=== PATIENT | male | born 1970 | race American Indian/Alaskan Native ===

== ENCOUNTER 2018-08-25 13:54 | Emergency (ER) | payer OTHER ==
[2018-08-25] MEDS ORDERED: ZOFRAN IV ONE (15:00)
[2018-08-25] MEDS ORDERED: SUBLIMAZE IV ONE (15:00)
[2018-08-25] MEDS ORDERED: ZOFRAN ONE (15:04)
[2018-08-25] MEDS ORDERED: SUBLIMAZE ONE (15:04)
--- NOTE | 2018-08-25 15:09 | Emergency Department Report ---
HPI - General Chief Complaint: Back Pain/Injury Time Seen by Provider: 08/25/18 14:54 - HPI HPI: Room 18 The patient is a 47-year-old male presenting with chief complaint of pain after fall. Patient states prior to arrival he was pressure washing a house when he lost his balance and fell backwards off of the ladder 10 feet down to a wooden deck. There was reported loss of consciousness. Patient complains of a headache and low back pain and neck pain. Patient gives his pain is score of 8/10 Location: [See above] Duration: [See above] Quality: Pain Severity:8/10 Modifying factors: [see above] Context: [see above] Mode of transportation: [not driving] ED Past Medical Hx - Past Medical History Previous Medical History?: No - Surgical History Past Surgical History?: No - Family History Family history: no significant - Social History Smoking Status: Never Smoker Substance Use Type: None (denies illicit drug use) - Medications Home Medications: Home Medications Medication Instructions Recorded Confirmed Last Taken Type Cyclobenzaprine [Flexeril] 10 mg PO TID PRN #14 tablet 08/25/18 Unknown Rx HYDROcodone/APAP 5-325 [[place] 1 - 2 each PO Q6HR PRN #14 tablet 08/25/18 Unknown Rx 5/325] Ibuprofen [Motrin 800 MG tab] 800 mg PO Q8HR PRN #20 tablet 08/25/18 Unknown Rx ED Review of Systems ROS: Stated complaint: HEAD PAIN/LOWER BACK PAIN Other details as noted in HPI Constitutional: no symptoms reported Eyes: denies: eye pain ENT: denies: throat pain Respiratory: no symptoms reported Cardiovascular: denies: chest pain Endocrine: no symptoms reported Gastrointestinal: denies: abdominal pain Genitourinary: denies: dysuria Musculoskeletal: back pain, arthralgia Neurological: headache Physical Exam - Physical Exam Vital Signs: Vital Signs 08/25/18 14:38 Temperature 97.6 F Pulse Rate 68 Respiratory 20 Rate Blood Pressure 141/90 Physical Exam: GENERAL: The patient is well-developed well-nourished male lying on stretcher not appearing to be in acute distress. [] HEENT: Normocephalic. Atraumatic. Extraocular motions are intact. Patient has moist mucous membranes. NECK: Supple. Mild lower cervical tenderness to palpation. No axial step-offs CHEST/LUNGS: Clear to auscultation. There is no respiratory distress noted. HEART/CARDIOVASCULAR: Regular. There is no tachycardia. There is no gallop rub or murmur. ABDOMEN: Abdomen is soft, nontender. Patient has normal bowel sounds. There is no abdominal distention. SKIN: There is no rash. There is no edema. There is no diaphoresis. NEURO: The patient is awake, alert, and oriented. The patient is cooperative. The patient has no focal neurologic deficits. The patient has normal speech MUSCULOSKELETAL: There is tenderness to palpation of the cervical and lumbar axial spine. No step-offs. There is no tenderness to palpation of either upper extremity. There is no tenderness to palpation of the left lower extremity. Tenderness to palpation of the right hip but the remainder of the right lower extremity is nontender. There is no tenderness to palpation of bilateral clavicles. There is no tenderness to palpation of the thoracic spine ED Course Vital Signs 08/25/18 14:38 Temperature 97.6 F Pulse Rate 68 Respiratory 20 Rate Blood Pressure 141/90 ED Medical Decision Making - Radiology Data Radiology results: report reviewed (CT head, CT cervical spine, CT lumbar spine, right hip x-ray), image reviewed (CT head, CT cervical spine, CT lumbar spine, right hip x-ray) interpreted by me: Right hip x-ray-[place] [address] Cat Scan Report Signed Patient: NABOR PARKER JR MR#: [id number] : 1970 Acct:[id number] Age/Sex: 47 / M ADM Date: 08/25/18 Loc: ED Attending Dr: Ordering Physician: GRACE ABBASI MD Date of Service: 08/25/18 Procedure(s): CT cervical spine wo con Accession Number(s): [id number] cc: GRACE ABBASI MD PROCEDURE: CT CERVICAL SPINE WO CON HISTORY: pain after fall from 10 feet FINDINGS: Unenhanced CT of the cervical spine was performed and data was reformatted in the sagittal and coronal planes. These images demonstrate no fracture or malalignment of the cervical spine. The prevertebral soft tissues are within normal limits. There is no evidence of central canal stenosis, significant neural foraminal narrowing or nerve root impingement. The pulmonary apices appear clear. IMPRESSION: No fracture or malalignment of the cervical spine This document is electronically signed by Arturo Lagunas MD., August 25 2018 04:15:29 PM ET Transcribed By: JOHN Dictated By: ARTURO LAGUNAS MD Electronically Authenticated By: ARTURO LAGUNAS MD Signed Date/Time: 08/25/187 DD/ 0000 TD/TT: 08/25/[address] [address] Cat Scan Report Signed Patient: NABOR PARKER JR MR#: [id number] : 1970 Acct:[id number] Age/Sex: 47 / M ADM Date: 08/25/18 Loc: ED Attending Dr: Ordering Physician: GRACE ABBASI MD Date of Service: 08/25/18 Procedure(s): CT head/brain wo con Accession Number(s): [id number] cc: GRACE ABBASI MD PROCEDURE: CT HEAD/BRAIN WO CON HISTORY: LOC after fall from 10 feet FINDINGS: Unenhanced CT of the brain was performed and demonstrates no acute intracranial hemorrhage, extra-axial fluid collection, midline shift or mass effect. The ventricles and basal cisterns are not effaced. The mastoid air cells and middle ears appear clear. There is no evidence of acute sinusitis. The bony calvarium appears intact. IMPRESSION: No acute intracranial hemorrhage This document is electronically signed by Arturo Lagunas MD., August 25 2018 04:12:22 PM ET Transcribed By: JOHN Dictated By: ARTURO LAGUNAS MD Electronically Authenticated By: ARTURO LAGUNAS MD Signed Date/Time: 08/25/184 DD/ 1551 TD/TT: 08/25/[address] [address] Cat Scan Report Signed Patient: NABOR PARKER JR MR#: [id number] : 1970 Acct:[id number] Age/Sex: 47 / M ADM Date: 08/25/18 Loc: ED Attending Dr: Ordering Physician: GRACE ABBASI MD Date of Service: 08/25/18 Procedure(s): CT lumbar spine wo con Accession Number(s): [id number] cc: GRACE ABBASI MD PROCEDURE: CT LUMBAR SPINE WO CON HISTORY: pain after fall from 10 feet FINDINGS: Unenhanced CT of the lumbar spine was performed and data was reformatted into sagittal and coronal planes. These images demonstrate no fracture or malalignment of the lumbar spine. At L1-L2, L2-L3, L3-4 and L4-5 there are no posterior disc abnormalities. There is moderate facet hypertrophy at L4-L5. At L5-S1 there is a small posterior disc bulge mildly effaces the anterior margin of the thecal sac but does not result in canal stenosis. There is mild bilateral neural foraminal narrowing without nerve root impingement. There are degenerative changes in both sacroiliac joints. IMPRESSION: No fracture is seen in the lumbar spine This document is electronically signed by Arturo Lagunas MD., August 25 2018 04:17:39 PM ET Transcribed By: JOHN Dictated By: ARTURO LAGUNAS MD Electronically Authenticated By: ARTURO LAGUNAS MD Signed Date/Time: 08/25/181618 DD/ 57 TD/TT: 08/25/18 1558 [facility] [address] [place] [address] XRay Report Signed Patient: NABOR PARKER JR MR#: [id number] : 1970 Acct:[id number] Age/Sex: 47 / M ADM Date: 08/25/18 Loc: ED Attending Dr: Ordering Physician: GRACE ABBASI MD Date of Service: 08/25/18 Procedure(s): XR hip 2-3V RT Accession Number(s): [id number] cc: GRACE ABBASI MD Fluoro Time In Minutes: PROCEDURE: XR HIP 2-3V RT TECHNIQUE: Single view pelvis and 1 view(s) right hip radiographs. HISTORY: pain after fall from 10 feet COMPARISONS: None currently available. FINDINGS: PELVIS: Sacroiliac joints are unremarkable. There is no acute pelvic fracture. There is no evidence for healing fracture. There is no cortical destruction to suggest osteomyelitis. There are no suspicious osseous lesions. There are no radiopaque foreign objects. RIGHT HIP: Joints in anatomical alignment. No significant arthrosis. There is no acute dislocation. There is no acute fracture. There is no evidence for healing fracture. There is no cortical destruction to suggest osteomyelitis. There are no suspicious osseous lesions. There are no radiopaque foreign objects. IMPRESSION: * No acute osseous findings. This document is electronically signed by Cristian Le MD., August 25 2018 04:41:03 PM ET Transcribed By: TYM Dictated By: CRISTIAN LE MD Electronically Authenticated By: CRISTIAN LE MD Signed Date/Time: 08/25/181642 DD/ 26 TD/TT: 08/25/181626 - Differential Diagnosis closed head injury, cervical strain, cervical fracture, right hip contusion Critical care attestation.: If time is entered above; I have spent that time in minutes in the direct care of this critically ill patient, excluding procedure time. ED Disposition Clinical Impression: Closed head injury, Cervical strain, acute, Acute lumbar myofascial strain, Contusion of right hip Disposition: -01 TO HOME OR SELFCARE Is pt being admited?: No Does the pt Need Aspirin: No Condition: Stable Instructions: Muscle Strain (ED) Additional Instructions: Return to the emergency department immediately should you develop worsening symptoms, fever, inability to tolerate food or liquid or any other concerns. Prescriptions: Cyclobenzaprine [Flexeril] 10 mg PO TID PRN #14 tablet PRN Reason: Muscle Spasm Ibuprofen [Motrin 800 MG tab] 800 mg PO Q8HR PRN #20 tablet PRN Reason: Pain, Moderate (4-6) HYDROcodone/APAP 5-325 [[place] 5/325] 1 - 2 each PO Q6HR PRN #14 tablet PRN Reason: Pain Referrals: JACOB VIERA MD [Primary Care Provider] - 3-5 Days LILLIANA HI MD [Staff Physician] - 3-5 Days (Dr. Hi is an orthopedic surgeon. Please follow up with him for further evaluation should your pain persist) Time of Disposition: 17:00
--- NOTE | 2018-08-25 16:14 | Cat Scan Report ---
PROCEDURE: CT HEAD/BRAIN WO CON HISTORY: LOC after fall from 10 feet FINDINGS: Unenhanced CT of the brain was performed and demonstrates no acute intracranial hemorrhage, extra-axial fluid collection, midline shift or mass effect. The ventricles and basal cisterns are no t effaced. The mastoid air cells and middle ears appear clear. There is no evidence of acute sinusitis. The bony calvarium appears intact. IMPRESSION: No acute intracranial hemorrhage This document is electronically signed by Arturo Lagunas MD., August 25 2018 04:12:22 PM ET
--- NOTE | 2018-08-25 16:17 | Cat Scan Report ---
PROCEDURE: CT CERVICAL SPINE WO CON HISTORY: pain after fall from 10 feet FINDINGS: Unenhanced CT of the cervical spine was performed and data was reformatted in the sagittal and coronal planes. These images demonstrate no fracture or malalignment of the cervical spine. The prevertebral soft tis sues are within normal limits. There is no evidence of central canal stenosis, significant neural foraminal narrowing or nerve root impingement. The pulmonary apices appear clear. IMPRESSION: No fracture or malalignment of the cervical spine This document is electronically signed by Arturo Lagunas MD., August 25 2018 04:15:29 PM ET
--- NOTE | 2018-08-25 16:19 | Cat Scan Report ---
PROCEDURE: CT LUMBAR SPINE WO CON HISTORY: pain after fall from 10 feet FINDINGS: Unenhanced CT of the lumbar spine was performed and data was reformatted into sagittal and coronal planes. These images demonstrate no fracture or malalignment of the lumbar spine. At L1-L2, L2-L3, L3-4 and L 4-5 there are no posterior disc abnormalities. There is moderate facet hypertrophy at L4-L5. At L5-S1 there is a small posterior disc bulge mildly effaces the anterior margin of the thecal sac b ut does not result in canal stenosis. There is mild bilateral neural foraminal narrowing without nerv e root impingement. There are degenerative changes in both sacroiliac joints. IMPRESSION: No fracture is seen in the lumbar spine This document is electronically signed by Arturo Lagunas MD., August 25 2018 04:17:39 PM ET
--- NOTE | 2018-08-25 16:43 | XRay Report ---
PROCEDURE: XR HIP 2-3V RT TECHNIQUE: Single view pelvis and 1 view(s) right hip radiographs. HISTORY: pain after fall from 10 feet COMPARISONS: None currently available. FINDINGS: PELVIS: Sacroiliac joints are unremarkable. There is no acute pelvic fracture. There is no evidence for healing fracture. There is no cortical destruction to suggest osteomyelitis. There are no suspicious osseous lesions. There are no radiopaque foreign objects. RIGHT HIP: Joints in anatomical alignment. No significant arthrosis. There is no acute dislocation. There is no acute fracture. There is no evidence for healing fracture. There is no cortical destruction to suggest osteomyelitis. There are no suspicious osseous lesions. There are no radiopaque foreign objects. IMPRESSION: * No acute osseous findings. This document is electronically signed by Cristian Burt MD., August 25 2018 04:41:03 PM ET
[2018-08-25 17:59] VITALS: BP 144/86
== END 2018-08-25 17:05 | disposition home or self-care (01) ==
LOC: ED 13:54
DX: S09.90XA Unspecified injury of head, initial encounter (principal); S16.1XXA Strain of muscle, fascia and tendon at neck level, initial encounter; S39.012A Strain of muscle, fascia and tendon of lower back, initial encounter; S70.01XA Contusion of right hip, initial encounter; W11.XXXA Fall on and from ladder, initial encounter; Y93.H3 Activity, building and construction; Y92.89 Other specified places as the place of occurrence of the external cause; Y99.8 Other external cause status
CPT/HCPCS: 70450; 72125; 72131; 73502; 96374; 96375; 99284; J2405; J3010

== ENCOUNTER 2019-09-03 02:09 | Emergency (ER) | payer SELFPAY ==
[2019-09-03] MEDS ORDERED: BUTALB/ACETAMINOPHEN/CAFFEINE TAB PO ONE (02:28)
[2019-09-03] MEDS ORDERED: KETOROLAC 30 MG/1 ML INJ IM ONE (02:28)
[2019-09-03 02:54] VITALS: BP 139/100
--- NOTE | 2019-09-03 03:33 | Emergency Department Report ---
ED General Adult HPI - General Chief complaint: High BP Stated complaint: BLOOD PRESSURE Source: patient Mode of arrival: Ambulatory Limitations: No Limitations - History of Present Illness Initial comments: Patient is a 48-year-old -[place]yp[place] male with a history of hypertension who is noncompliant with his medications who presents to the ED with acute onset persistent severe right temporal headache for the last 1 week, worse in the last 2 days. Patient states that he has not been taking his blood pressure medications after being out of the medicine over 2 months ago. Patient states that in the past he noticed that the blood pressure has been elevated and since he lost his job he has not been able to follow up with any provider to write him his blood pressure medication. Patient states that he has been taking Norvasc 10 mg daily in the past. Patient states that for his headache he has been taking Tylenol as needed for the pain but the pain has been persistent despite taking the medication. Patient denies chest pain, shortness of breath, nausea, vomiting, change in vision, syncope, dizziness, sore throat, fever or chills, nasal and sinus congestion, neck pain, numbness and tingling or weakness of upper and lower extremities bilaterally or seizures. MD Complaint: headache, medication refill -: Sudden, week(s) (1) Location: head Radiation: non-radiation Severity scale (0 -10): 8 Quality: aching, sharp Consistency: constant Improves with: none Worsens with: none Associated Symptoms: denies other symptoms, headaches. denies: confusion, chest pain, cough, diaphoresis, fever/chills, loss of appetite, malaise, nausea/vomiting, rash, seizure, shortness of breath, syncope Treatments Prior to Arrival: NSAID - Related Data Previous Rx's Medication Instructions Recorded Last Taken Type Cyclobenzaprine [Flexeril] 10 mg PO TID PRN #14 tablet 08/25/18 Unknown Rx HYDROcodone/APAP 5-325 [[place] 1 - 2 each PO Q6HR PRN #14 tablet 08/25/18 Unknown Rx 5/325] Butalb/Acetamin/Caff 50-325-40 2 tab PO Q6HR PRN #15 tab 09/03/19 Unknown Rx [Fioricet 50-325-40] Ibuprofen [Motrin 800 MG tab] 800 mg PO Q8HR PRN #20 tablet 09/03/19 Unknown Rx amLODIPine 10 mg PO DAILY #30 tab 09/03/19 Unknown Rx Allergies Allergy/AdvReac Type Severity Reaction Status Date / Time No Known Allergies Allergy Verified 08/25/18 14:38 ED Review of Systems ROS: Stated complaint: BLOOD PRESSURE Other details as noted in HPI Constitutional: denies: chills, fever Eyes: denies: eye pain, eye discharge, vision change ENT: denies: ear pain, throat pain Respiratory: denies: cough, shortness of breath, wheezing Cardiovascular: denies: chest pain, palpitations Endocrine: no symptoms reported Gastrointestinal: denies: abdominal pain, nausea, diarrhea Genitourinary: denies: urgency, dysuria Musculoskeletal: denies: back pain, joint swelling, arthralgia Skin: denies: rash, lesions Neurological: headache. denies: weakness, paresthesias Psychiatric: denies: anxiety, depression Hematological/Lymphatic: denies: easy bleeding, easy bruising ED Past Medical Hx - Past Medical History Previous Medical History?: Yes Hx Hypertension: Yes - Surgical History Past Surgical History?: No - Social History Smoking Status: Never Smoker Substance Use Type: Marijuana - Medications Home Medications: Home Medications Medication Instructions Recorded Confirmed Last Taken Type Cyclobenzaprine [Flexeril] 10 mg PO TID PRN #14 tablet 08/25/18 Unknown Rx HYDROcodone/APAP 5-325 [[place] 1 - 2 each PO Q6HR PRN #14 tablet 08/25/18 Unknown Rx 5/325] Butalb/Acetamin/Caff 50-325-40 2 tab PO Q6HR PRN #15 tab 09/03/19 Unknown Rx [Fioricet 50-325-40] Ibuprofen [Motrin 800 MG tab] 800 mg PO Q8HR PRN #20 tablet 09/03/19 Unknown Rx amLODIPine 10 mg PO DAILY #30 tab 09/03/19 Unknown Rx ED Physical Exam - General Limitations: No Limitations General appearance: alert, in no apparent distress, anxious - Head Head exam: Present: atraumatic, normocephalic, normal inspection - Eye Eye exam: Present: normal appearance, PERRL, EOMI Pupils: Present: normal accommodation - ENT ENT exam: Present: normal exam, normal orophraynx, mucous membranes moist, TM's normal bilaterally, normal external ear exam - Neck Neck exam: Present: normal inspection, full ROM - Respiratory Respiratory exam: Present: normal lung sounds bilaterally. Absent: respiratory distress, wheezes, rales, rhonchi, chest wall tenderness, decreased breath sounds, prolonged expiratory - Cardiovascular Cardiovascular Exam: Present: regular rate, normal rhythm, normal heart sounds. Absent: systolic murmur, diastolic murmur, rubs, gallop - GI/Abdominal GI/Abdominal exam: Present: soft, normal bowel sounds. Absent: tenderness, guarding, rigid, hyperactive bowel sounds, hypoactive bowel sounds - Extremities Exam Extremities exam: Present: normal inspection, full ROM, normal capillary refill - Back Exam Back exam: Present: normal inspection, full ROM. Absent: tenderness, CVA tenderness (R), CVA tenderness (L), muscle spasm, paraspinal tenderness, vertebral tenderness - Neurological Exam Neurological exam: Present: alert, oriented X3, CN II-XII intact, normal gait, reflexes normal - Psychiatric Psychiatric exam: Present: normal affect, normal mood - Skin Skin exam: Present: warm, dry, intact, normal color. Absent: rash ED Course Vital Signs 09/03/19 09/03/19 02:12 02:53 Temperature 98.0 F 98 F Pulse Rate 113 H 79 Respiratory 18 18 Rate Blood Pressure 147/99 Blood Pressure 139/100 [Left] O2 Sat by Pulse 100 100 Oximetry ED Medical Decision Making - Medical Decision Making This is a 48-year-old -[place] male with a history of hypertension who is noncompliant with his medications who presents to the ED with acute onset persistent severe right temporal headache for the last 1 week, worse in the last 2 days. Patient states that he has not been taking his blood pressure medications after being out of the medicine over 2 months ago. Patient states that in the past he noticed that the blood pressure has been elevated and since he lost his job he has not been able to follow up with any provider to write him his blood pressure medication. Patient states that he has been taking Norvasc 10 mg daily in the past. Patient states that for his headache he has been taking Tylenol as needed for the pain but the pain has been persistent despite taking the medication. In the ED, patient is alert and oriented x3 and is not in distress but anxious and tachycardic in triage. Patient was treated for pain in the ED. On reevaluation, patient's pain is well controlled with medications. The patient's vital signs were rechecked and his tachycardia resolved. Patient was discharged home on pain medications and refill on his Norvasc 10 mg daily for his hypertension. Patient was advised to follow-up with his primary care physician in 7 to 10 days for reevaluation or return to the ED immediately if symptoms get worse. - Differential Diagnosis sinus headache; tension headache; cluster headache; HTN Critical care attestation.: If time is entered above; I have spent that time in minutes in the direct care of this critically ill patient, excluding procedure time. ED Disposition Clinical Impression: Uncontrolled hypertension, stage 1, Medication refill Tension type headache Qualifiers: Headache chronicity pattern: acute headache Intractability: not intractable Qualified Code(s): G44.209 - Tension-type headache, unspecified, not intractable Disposition: DC- TO HOME OR SELFCARE Is pt being admited?: No Does the pt Need Aspirin: No Condition: Stable Instructions: Tension Headache (ED), Hypertension (ED) Additional Instructions: Take medication with food, drink plenty of fluids and follow-up with your primary care physician in 7 to 10 days for reevaluation. Return to the ED immediately if symptoms get worse. Prescriptions: amLODIPine 10 mg PO DAILY #30 tab Butalb/Acetamin/Caff 50-325-40 [Fioricet 50-325-40] 2 tab PO Q6HR PRN #15 tab PRN Reason: Headache Ibuprofen [Motrin 800 MG tab] 800 mg PO Q8HR PRN #20 tablet PRN Reason: Pain, Moderate (4-6) Referrals: [facility] [Provider Group] - 3-5 Days Time of Disposition: 03:30 Print Language: TRINIDADIAN
== END 2019-09-03 04:03 | disposition home or self-care (01) ==
LOC: ED 02:09
DX: G44.209 Tension-type headache, unspecified, not intractable (principal); I10 Essential (primary) hypertension; Z76.0 Encounter for issue of repeat prescription; F12.10 Cannabis abuse, uncomplicated; Z79.1 Long term (current) use of non-steroidal anti-inflammatories (NSAID); Z79.899 Other long term (current) drug therapy
CPT/HCPCS: 96372; 99282; J1885

== ENCOUNTER 2020-11-30 23:17 | Emergency (ER) | payer SELFPAY ==
[2020-12-01 01:01] VITALS: BP 181/118
[2020-12-01] MEDS ORDERED: IBUPROFEN 600 MG TAB PO ONE ×3 (01:04→03:13)
[2020-12-01] MEDS ORDERED: ACETAMINOPHEN 500 MG TAB PO ONE ×2 (01:04→03:12)
--- NOTE | 2020-12-01 01:46 | XRay Report ---
RIGHT FOOT 3 VIEW(S) INDICATION / CLINICAL INFORMATION: pain and swelling s/p twisted ankle COMPARISON: None available. FINDINGS: BONES / JOINT(S): No acute fracture or subluxation. No significant arthritis. SOFT TISSUES: No significant abnormality. ADDITIONAL FINDINGS: None. Signer Name: Jessica Fleming MD Signed: 12/01/2020 1:42 AM Workstation Name: [id number]
--- NOTE | 2020-12-01 01:46 | XRay Report ---
RIGHT ANKLE 3 VIEW(S) INDICATION / CLINICAL INFORMATION: pain and swelling R ankle s/p "twisting ankle" COMPARISON: None available. FINDINGS: BONES / JOINT(S): No acute fracture or subluxation. No significant arthritis. SOFT TISSUES: Mild anterolateral soft tissue swelling. ADDITIONAL FINDINGS: None. Signer Name: Jessica Fleming MD Signed: 12/01/2020 1:41 AM Workstation Name: [id number]
--- NOTE | 2020-12-01 02:13 | Emergency Department Report ---
ED Lower Extremity HPI - General Chief Complaint: Extremity Injury, Lower Stated Complaint: RIGHT FOOT INJURY Source: patient Mode of arrival: Ambulatory Limitations: No Limitations - History of Present Illness Initial Comments: Patient is a 50-year-old -[place] male with past medical history of hypertension who presents to the ED with complaint of acute onset persistent right ankle and foot pain with swelling after he twisted his right ankle when coming down the pavement about 7 hours ago. Patient states that he is unable to bear weight on the right leg because of severe right ankle and foot pain. Patient denies numbness and tingling or weakness of right leg, dizziness, syncope, seizures, fall, head or neck injuries, back pain, hip pain, chest pain or shortness of breath. MD Complaint: ankle injury (Right ankle pain and swelling after twisting the right ankle), foot injury (Right foot pain after twisting the right ankle) -: Sudden, hour(s) (7) Injury: Ankle: Right (right ankle pain), Foot: Right (right foot pain) Type of Injury: eversion Place: home Severity: severe Severity scale (0 -10): 7 Improves With: nothing Worsens With: weight bearing, movement, palpation Context: walking Associated Symptoms: snap/pop sensation, swelling, able to partially bear weight. denies: numbness, tingling, unable to bear weight - Related Data Previous Rx's Medication Instructions Recorded Last Taken Type Cyclobenzaprine [Flexeril] 10 mg PO TID PRN #14 tablet 08/25/18 Unknown Rx HYDROcodone/APAP 5-325 [[place] 1 - 2 each PO Q6HR PRN #14 tablet 08/25/18 Unknown Rx 5/325] Butalb/Acetamin/Caff 50-325-40 2 tab PO Q6HR PRN #15 tab 09/03/19 Unknown Rx [Fioricet 50-325-40] amLODIPine 10 mg PO DAILY #30 tab 09/03/19 Unknown Rx Ibuprofen [Motrin 800 MG tab] 800 mg PO Q8HR PRN #30 tablet 12/01/20 Unknown Rx traMADoL [Ultram] 50 mg PO Q6HR PRN #12 tablet 12/01/20 Unknown Rx Allergies Allergy/AdvReac Type Severity Reaction Status Date / Time No Known Allergies Allergy Verified 08/25/18 14:38 ED Review of Systems ROS: Stated complaint: RIGHT FOOT INJURY Other details as noted in HPI Constitutional: denies: chills, fever Eyes: denies: eye pain, eye discharge, vision change ENT: denies: ear pain, throat pain Respiratory: denies: cough, shortness of breath, wheezing Cardiovascular: denies: chest pain, palpitations Endocrine: no symptoms reported Gastrointestinal: denies: abdominal pain, nausea, diarrhea Genitourinary: denies: urgency, dysuria Musculoskeletal: joint swelling (Right ankle and foot swelling), arthralgia (Right ankle and foot pain). denies: back pain Skin: denies: rash, lesions Neurological: denies: headache, weakness, paresthesias Psychiatric: denies: anxiety, depression Hematological/Lymphatic: denies: easy bleeding, easy bruising ED Past Medical Hx - Past Medical History Previous Medical History?: Yes Hx Hypertension: Yes - Surgical History Past Surgical History?: No - Social History Smoking Status: Current Every Day Smoker Substance Use Type: Marijuana - Medications Home Medications: Home Medications Medication Instructions Recorded Confirmed Last Taken Type Cyclobenzaprine [Flexeril] 10 mg PO TID PRN #14 tablet 08/25/18 Unknown Rx HYDROcodone/APAP 5-325 [[place] 1 - 2 each PO Q6HR PRN #14 tablet 08/25/18 Unknown Rx 5/325] Butalb/Acetamin/Caff 50-325-40 2 tab PO Q6HR PRN #15 tab 09/03/19 Unknown Rx [Fioricet 50-325-40] amLODIPine 10 mg PO DAILY #30 tab 09/03/19 Unknown Rx Ibuprofen [Motrin 800 MG tab] 800 mg PO Q8HR PRN #30 tablet 12/01/20 Unknown Rx traMADoL [Ultram] 50 mg PO Q6HR PRN #12 tablet 12/01/20 Unknown Rx ED Physical Exam - General Limitations: No Limitations General appearance: alert, in no apparent distress - Head Head exam: Present: atraumatic, normocephalic, normal inspection - Eye Eye exam: Present: normal appearance, PERRL, EOMI Pupils: Present: normal accommodation - ENT ENT exam: Present: normal exam, normal orophraynx, mucous membranes moist, TM's normal bilaterally, normal external ear exam - Neck Neck exam: Present: normal inspection, full ROM. Absent: tenderness - Respiratory Respiratory exam: Present: normal lung sounds bilaterally. Absent: respiratory distress, wheezes, rales, rhonchi, chest wall tenderness, accessory muscle use, decreased breath sounds, prolonged expiratory - Cardiovascular Cardiovascular Exam: Present: regular rate, normal rhythm, normal heart sounds. Absent: systolic murmur, diastolic murmur, rubs, gallop - GI/Abdominal GI/Abdominal exam: Present: soft, normal bowel sounds. Absent: tenderness, guarding, rebound, hyperactive bowel sounds - Extremities Exam Extremities exam: Present: normal inspection, tenderness (Palpable right ankle and foot tenderness and mild swelling with limited range of motion due to pain), normal capillary refill, joint swelling (Right ankle and foot swelling). Absent: full ROM (Limited range of motion due to pain), pedal edema - Back Exam Back exam: Present: normal inspection, full ROM. Absent: tenderness, CVA tenderness (R), CVA tenderness (L), muscle spasm, paraspinal tenderness, vertebral tenderness - Neurological Exam Neurological exam: Present: alert, oriented X3, CN II-XII intact, normal gait, reflexes normal - Psychiatric Psychiatric exam: Present: normal affect, normal mood - Skin Skin exam: Present: warm, dry, intact, normal color. Absent: rash ED Course Vital Signs 12/01/20 00:57 Temperature 98.8 F Pulse Rate 80 Respiratory 18 Rate Blood Pressure 181/118 O2 Sat by Pulse 99 Oximetry ED Lower Extremity MDM - Radiology Data Radiology results: report reviewed, image reviewed [facility] [address] [place] [address] XRay Report Signed Patient: NABOR PARKER JR MR#: [id number] : 1970 Acct:[id number] Age/Sex: 50 / M ADM Date: 11/30/20 Loc: ED Attending Dr: Ordering Physician: GALINA JENSEN Date of Service: 12/01/20 Procedure(s): XR foot 3+V RT Accession Number(s): [id number] cc: GALINA JENSEN Fluoro Time In Minutes: RIGHT FOOT 3 VIEW(S) INDICATION / CLINICAL INFORMATION: pain and swelling s/p twisted ankle COMPARISON: None available. FINDINGS: BONES / JOINT(S): No acute fracture or subluxation. No significant arthritis. SOFT TISSUES: No significant abnormality. ADDITIONAL FINDINGS: None. Signer Name: Jessica Fleming MD Signed: 12/01/2020 1:42 AM Workstation Name: [id number] Transcribed By: HAYDEN Dictated By: Milan Fleming MD Electronically Authenticated By: Milan Fleming MD Signed Date/Time: 12/01/20141 DD/ 0 TD/TT: [facility] [address] [place] [address] XRay Report Signed Patient: NABOR PARKER JR MR#: [id number] : 1970 Acct:[id number] Age/Sex: 50 / M ADM Date: 11/30/20 Loc: ED Attending Dr: Ordering Physician: GALINA JENSEN Date of Service: 12/01/20 Procedure(s): XR ankle 3+V RT Accession Number(s): [id number] cc: GALINA JENSEN Fluoro Time In Minutes: RIGHT ANKLE 3 VIEW(S) INDICATION / CLINICAL INFORMATION: pain and swelling R ankle s/p "twisting ankle" COMPARISON: None available. FINDINGS: BONES / JOINT(S): No acute fracture or subluxation. No significant arthritis. SOFT TISSUES: Mild anterolateral soft tissue swelling. ADDITIONAL FINDINGS: None. Signer Name: Jessica Fleming MD Signed: 12/01/2020 1:41 AM Workstation Name: [id number] Transcribed By: HAYDEN Dictated By: Milan Fleming MD Electronically Authenticated By: Milan Fleming MD Signed Date/Time: 12/01/20140 DD/ 0 TD/TT: Print - Medical Decision Making This is a 50-year-old -B[place] male with past medical history of hypertension who presents to the ED with complaint of acute onset persistent right ankle and foot pain with swelling after he twisted his right ankle when coming down the pavement about 7 hours ago. Patient states that he is unable to bear weight on the right leg because of severe right ankle and foot pain. In the ED, patient is alert and oriented x3 and is not in any distress but appears to be in pain. Patient was treated for pain in the ED and right ankle x-ray showed no acute fractures or subluxations. Right foot x-ray also showed no acute fractures and subluxations. Right ankle and foot was splinted with James wrap and the patient was discharged home on pain medications and advised to follow-up with his primary care physician in 7 to 10 days for reevaluation. Patient advised return to the ED immediately if symptoms get worse. - Differential Diagnosis Foot sprain; ankle sprain; foot contusion; foot fracture; ankle fracture Critical care attestation.: If time is entered above; I have spent that time in minutes in the direct care of this critically ill patient, excluding procedure time. ED Disposition Clinical Impression: Severe sprain of right ankle Qualifiers: Encounter type: initial encounter Qualified Code(s): S93.401A - Sprain of unspecified ligament of right ankle, initial encounter Sprain of right foot Qualifiers: Encounter type: initial encounter Qualified Code(s): S93.601A - Unspecified sprain of right foot, initial encounter Disposition: TO HOME OR SELFCARE Is pt being admited?: No Does the pt Need Aspirin: No Condition: Stable Instructions: Foot Sprain, Ankle Sprain, [id number] Additional Instructions: The right ankle and foot x-rays showed no acute fractures or subluxation. Your injuries are likely musculoskeletal given the mechanism of injury. Therefore take pain medications with food, drink plenty of fluids and follow-up with your primary care physician in 5 to 7 days for reevaluation. Return to the ED immediately if symptoms get worse. Prescriptions: Ibuprofen [Motrin 800 MG tab] 800 mg PO Q8HR PRN #30 tablet PRN Reason: Pain, Moderate (4-6) traMADoL [Ultram] 50 mg PO Q6HR PRN #12 tablet PRN Reason: Pain Referrals: [facility] [Provider Group] - 3-5 Days Forms: Work/School Release Form(ED) Time of Disposition: 02:17 Print Language: GUYANESE
[2020-12-01] MEDS: ACETAMINOPHEN 500 MG TAB PO ONE ×2 (03:17→03:26)
== END 2020-12-01 03:30 | disposition home or self-care (01) ==
LOC: ED 23:17
DX: S93.601A Unspecified sprain of right foot, initial encounter (principal); S93.401A Sprain of unspecified ligament of right ankle, initial encounter; I10 Essential (primary) hypertension; F17.200 Nicotine dependence, unspecified, uncomplicated; F12.90 Cannabis use, unspecified, uncomplicated; Z79.899 Other long term (current) drug therapy; X50.1XXA Overexertion from prolonged static or awkward postures, initial encounter; Y93.89 Activity, other specified; Y92.099 Unspecified place in other non-institutional residence as the place of occurrence of the external cause; Y99.8 Other external cause status

== ENCOUNTER 2021-09-07 09:11 | Emergency (ER) | payer BC ==
[2021-09-07] MEDS ORDERED: dexAMETHasone 4 MG/ML VIAL IM ONE (12:01)
[2021-09-07] MEDS ORDERED: KETOROLAC 10 MG TAB PO ONE (12:01)
[2021-09-07] MEDS ORDERED: METOCLOPRAMIDE 10 MG TAB PO ONE (12:02)
[2021-09-07] MEDS ORDERED: diphenhydrAMINE 25 MG CAP PO ONE (12:02)
[2021-09-07] MEDS ORDERED: cloNIDine 0.1 MG TAB PO ONE (12:02)
--- NOTE | 2021-09-07 13:41 | Emergency Department Report ---
ED Headache HPI - General Chief Complaint: Headache Stated Complaint: HEADACHE X3DAYS Time Seen by Provider: 09/07/21 11:54 - History of Present Illness Initial Comments: 50-year-old black male with a past medical history of hypertension presents to the emergency department for evaluation of 3-day history of intermittent headache. He states that he has had some nausea, vomiting, blurred vision, and photophobia that started 2 days ago but denies dizziness, chest pain, and shortness of breath. He states that headache is intermittent, rated 9 out of 10, and unrelieved by Tylenol. Patient is also requesting refill of hypert ension medication that he has not taken in almost a year. Timing/Duration: other Quality: severe Head Injury Location: frontal Recent Head Trauma: no recent headache/trauma (3 days) Associated Symptoms: facial pain, nausea/vomiting, nasal congestion, nasal drainage, vision changes. denies: confusion, fatigue, fever/chills, flushing, loss of consciousness, numbness in legs/feet, rash, seizures, sinus infection, weakness Allergies/Adverse Reactions: Allergies No Known Allergies Allergy (Verified 08/25/18 14:38) Home Medications: Ambulatory Orders Cyclobenzaprine [Flexeril] 10 mg PO TID PRN #14 tablet 08/25/18 HYDROcodone/APAP 5-325 [[place] 5/325] 1 - 2 each PO Q6HR PRN #14 tablet 08/25/18 Butalb/Acetamin/Caff 50-325-40 [Fioricet 50-325-40] 2 tab PO Q6HR PRN #15 tab 09/03/19 amLODIPine 10 mg PO DAILY #30 tab 09/03/19 Ibuprofen [Motrin 800 MG tab] 800 mg PO Q8HR PRN #30 tablet 12/01/20 traMADoL [Ultram] 50 mg PO Q6HR PRN #12 tablet 12/01/20 Levocetirizine Dihydrochloride [Xyzal] 5 mg PO QPM #15 tab 09/07/21 amLODIPine 10 mg PO DAILY #30 tab 09/07/21 methylPREDNISolone [Medrol 4MG DOSEPAK (21 tabs)] 4 mg PO DAILY #1 pack 09/07/21 ED Review of Systems ROS: Stated complaint: HEADACHE X3DAYS Other details as noted in HPI Comment: All other systems reviewed and negative Constitutional: denies: chills, fever, weakness Respiratory: denies: cough, shortness of breath, SOB with exertion, SOB at rest Cardiovascular: denies: chest pain, palpitations Gastrointestinal: denies: abdominal pain, nausea, vomiting Genitourinary: denies: urgency, dysuria, frequency, hematuria, discharge, testicular pain Skin: denies: rash, lesions Neurological: headache. denies: weakness, numbness, paresthesias, confusion, abnormal gait, vertigo, other ED Past Medical Hx - Past Medical History Previous Medical History?: Yes Hx Hypertension: Yes - Surgical History Past Surgical History?: No - Social History Smoking Status: Never Smoker - Medications Home Medications: Home Medications Medication Instructions Recorded Confirmed Last Taken Type Cyclobenzaprine [Flexeril] 10 mg PO TID PRN #14 tablet 08/25/18 Unknown Rx HYDROcodone/APAP 5-325 [[place] 1 - 2 each PO Q6HR PRN #14 tablet 08/25/18 Unknown Rx 5/325] Butalb/Acetamin/Caff 50-325-40 2 tab PO Q6HR PRN #15 tab 09/03/19 Unknown Rx [Fioricet 50-325-40] amLODIPine 10 mg PO DAILY #30 tab 09/03/19 Unknown Rx Ibuprofen [Motrin 800 MG tab] 800 mg PO Q8HR PRN #30 tablet 12/01/20 Unknown Rx traMADoL [Ultram] 50 mg PO Q6HR PRN #12 tablet 12/01/20 Unknown Rx Levocetirizine Dihydrochloride 5 mg PO QPM #15 tab 09/07/21 Unknown Rx [Xyzal] amLODIPine 10 mg PO DAILY #30 tab 09/07/21 Unknown Rx methylPREDNISolone [Medrol 4MG 4 mg PO DAILY #1 pack 09/07/21 Unknown Rx DOSEPAK (21 tabs)] ED Physical Exam - General Limitations: No Limitations General appearance: alert, in no apparent distress - Head Head exam: Present: atraumatic, normocephalic - Eye Eye exam: Present: normal appearance. Absent: conjunctival injection - ENT ENT exam: Absent: normal exam (Bilateral nasal mucosal edema along with turbinate swelling bilaterally and tenderness to frontal and maxillary sinus areas.), normal orophraynx (Erythema to posterior oropharynx) - Neck Neck exam: Present: normal inspection, full ROM. Absent: tenderness, lymphadenopathy - Respiratory Respiratory exam: Present: normal lung sounds bilaterally. Absent: respiratory distress, wheezes, rales, rhonchi, stridor, chest wall tenderness - Cardiovascular Cardiovascular Exam: Present: regular rate, normal heart sounds - GI/Abdominal GI/Abdominal exam: Present: soft, normal bowel sounds. Absent: distended, tenderness, guarding, rebound, rigid - Extremities Exam Extremities exam: Present: normal inspection, normal capillary refill. Absent: tenderness, pedal edema, joint swelling, calf tenderness - Back Exam Back exam: Present: normal inspection. Absent: tenderness, CVA tenderness (R), CVA tenderness (L), vertebral tenderness - Neurological Exam Neurological exam: Present: alert, oriented X3, CN II-XII intact, normal gait, reflexes normal. Absent: motor sensory deficit - Expanded Neurological Exam Expanded Patient oriented to: Present: person, place, time Speech: Present: fluid speech Cranial nerves: EOM's Intact: Normal, Gag Reflex: Normal, Tongue Deviation: Normal, Nystagmus: Normal, Facial Sensation: Normal Sensory exam: Upper Extremity Light Touch: Normal, Upper Extremity Temperature: Normal, Lower Extremity Light Touch: Normal, Lower Extremity Temperature: Normal Motor strength exam: RUE: 5, LUE: 5, RLE: 5, LLE: 5 Best Eye Response ([place]): (4) open spontaneously Best Motor Response ([place]): (6) obeys commands Best Verbal Response ([place]): (5) oriented [place] Total: 15 - Psychiatric Psychiatric exam: Present: normal affect, normal mood - Skin Skin exam: Present: warm, dry, intact, normal color ED Course Vital Signs 09/07/21 09/07/21 09:19 14:14 Temperature 98.0 F 98.6 F Pulse Rate 74 70 Respiratory 18 18 Rate Blood Pressure 177/113 Blood Pressure 150/88 [Right] O2 Sat by Pulse 99 99 Oximetry - Reevaluation(s) Reevaluation #1: 09/07/21 13:37 Headache, nausea, and blurred vision resolved patient states that he feels much better. 09/07/21 15:34 ED Medical Decision Making - Medical Decision Making 50-year-old black male with a past medical history of hypertension presents to the emergency department for evaluation of 3-day history of intermittent headache. He states that he has had some nausea, vomiting, blurred vision, and photophobia that started 2 days ago but denies dizziness, chest pain, and shortness of breath. He states that headache is intermittent, rated 9 out of 10, and unrelieved by Tylenol. Patient is also requesting refill of hypertension medication that he has not taken in almost a year. Symptom resolved after medication, and patient states that he feels much better. Patient continues to deny chest pain, shortness of breath, diaphoresis, and dizziness. Assessment consistent with sinus headache. Patient noted to be hypertensive on admission, and he was given one-time dose of clonidine 0.1 mg and blood pressure improved. Patient will be discharged home with Medrol Dosepak and Xyzal to take as directed. He will also be given a refill of Norvasc and advised to follow-up with his primary care provider for further evaluation and management. He verbalized an understanding of the plan of care. Critical care attestation.: If time is entered above; I have spent that time in minutes in the direct care of this critically ill patient, excluding procedure time. ED Disposition Clinical Impression: Medication refill Headache Qualifiers: Headache type: unspecified Headache chronicity pattern: acute headache Intractability: not intractable Qualified Code(s): R51.9 - Headache, unspecified Disposition: 01 HOME / SELF CARE / HOMELESS Is pt being admited?: No Does the pt Need Aspirin: No Condition: Stable Instructions: Amlodipine tablets, Sinus Headache, [id number] Additional Instructions: Take medication as prescribed. Follow-up with primary care provider for further evaluation and management. Return to the emergency department as needed. Prescriptions: amLODIPine 10 mg PO DAILY #30 tab methylPREDNISolone [Medrol 4MG DOSEPAK (21 tabs)] 4 mg PO DAILY #1 pack Levocetirizine Dihydrochloride [Xyzal] 5 mg PO QPM #15 tab Referrals: ANGEL HOFF MD [Primary Care Provider] - 3-5 Days Forms: Work/School Release Form(ED) Time of Disposition: 13:41
[2021-09-07 14:16] VITALS: BP 150/88
== END 2021-09-07 14:16 | disposition home or self-care (01) ==
LOC: ED 09:11
DX: R51.9 Headache, unspecified (principal); Z76.0 Encounter for issue of repeat prescription; I10 Essential (primary) hypertension
CPT/HCPCS: 96372; 99282; J1100